=== PATIENT | male | born 2000 | race Caucasian/White ===

== ENCOUNTER 2024-09-27 19:34 | Emergency (ER) | payer BC, SELFPAY ==
[2024-09-27 19:35] VITALS: BP 143/99
[2024-09-27 20:03] LABS: Hematocrit 43.5 % (39.0-52.0); Hemoglobin 15.5 g/dL (13.0-18.0); Mean Corp Hgb Conc. 35.6 g/dL (33.0-37.0); Mean Corpuscular Volume 87.3 fL (80.0-94.0); Nucleated Red Blood Cells % 0 % (-); Platelet Count 339 10^3/uL (130-400); Red Cell Dist. Width 11.7 % (11.5-14.5)
[2024-09-27 20:22] LABS: ALT (SGPT) 24 U/L (0-50); AST (SGOT) 21 U/L (17-59); Albumin 5.6 g/dl (3.5-5.0); Alkaline Phosphatase 92 U/L (38-126); Blood Urea Nitrogen 14 mg/dl (9-20); Calcium 10.2 mg/dl (8.4-10.2); Carbon Dioxide 24 mmol/L (22-30); Chloride 100 mmol/L (98-107); Glucose 100 mg/dl (70-99); Potassium 4.3 mmol/L (3.5-5.1); Sodium 138 mmol/L (135-145); Total Protein 9.1 g/dl (6.3-8.2); eGFR > 60.00
[2024-09-27 23:58] VITALS: BMI 30.3
[2024-09-28 00:02] VITALS: BP 137/98
[2024-09-28 01:00] VITALS: BP 129/93
[2024-09-28] MEDS: NSS 1000 IV (01:50)
[2024-09-28] MEDS: DUONEB 3 ML INH (01:51)
[2024-09-28] MEDS: DECADRON 10 MG PO (01:57)
--- NOTE | 2024-09-28 02:49 | ED.GENMED ---
History of Present Illness
General
Chief Complaint: Breathing Problem
Source: patient
Exam Limitations: none
Time Seen by Provider: 09/28/24 00:18
Nursing documentation reviewed up to this point in time: agreed with
History of Present Illness
History of Present Illness:
Note:
CHIEF COMPLAINT(S)
Shortness of breath and chest tightness.
HISTORY OF PRESENT ILLNESS
The patient is a 24-year-old male presenting with persistent shortness of breath and chest tightness. The symptoms have been ongoing for several months but have significantly worsened over the last two days, to the point that the patient is unable
to engage in daily activities such as walking without becoming short of breath. The patient noted that these symptoms have not improved despite using a prescribed inhaler and a daily steroid for the past two and a half weeks, following a pulmonary
function test that diagnosed him with asthma. This test was conducted by a supervisor facepiece line in [place]. The lack of improvement prompted further evaluation, including the consideration of a CT scan to rule out a pulmonary embolism. The patient denies
any leg pain or recent travel correlating with the symptom onset. Regarding environmental exposure, the patient denies any occupational exposure to chemicals.
SOCIAL HISTORY
The patient resides in [place] but is currently staying with the girlfriends parents. He works in [employer] and mentions consuming alcohol, though the frequency of consumption was not specified.
MEDICATIONS
The patient is currently taking a daily inhaled corticosteroid and albuterol as a rescue inhaler.
REVIEW OF SYSTEMS
- Respiratory: Persistent shortness of breath worsening over the past two days, unrelieved by current inhaler and steroids.
- Cardiovascular: Chest tightness.
PHYSICAL EXAM
General: Alert, no acute distress.
Skin: Warm, dry.
Head: Normocephalic, atraumatic.
Neck: Supple, trachea midline.
Eye Ears, nose, mouth and throat: Oral mucosa moist. Tonsilith on right
Cardiovascular: Normal peripheral perfusion, No edema.
Respiratory: Respirations are non-labored. No wheezes rales or rhonchi present.
Gastrointestinal: Abdomen nondistended.
Back: Normal range of motion, Normal alignment.
Musculoskeletal: Normal ROM, normal strength.
Neurological: Alert and oriented to person, place, time, and situation, No focal neurological deficit observed.
Psychiatric: Cooperative, appropriate mood & affect.
PROBLEM LIST
Acute:
- Worsening shortness of breath
- Chest tightness
PLAN
The plan is to perform a CT scan to evaluate for potential pulmonary embolism. Pending results, additional interventions may include a burst of oral corticosteroids or a different breathing treatment to alleviate symptoms. A referral to follow up
with a local supervisor facepiece line will be provided.
DIFFERENTIAL DIAGNOSIS
The Differential Diagnosis includes, in no particular order and is not limited to:
- Asthma exacerbation
- Pulmonary embolism
- Bronchitis
- Pneumonia
- Chronic obstructive pulmonary disease (COPD) exacerbation
- Heart failure
- Anxiety-related hyperventilation
- Interstitial lung disease
- Pneumothorax
- Gastroesophageal reflux disease (GERD)-related symptoms
Disposition:
SUMMARY OF ENCOUNTER
The patient is a 24-year-old male who presented to the emergency department with persistent shortness of breath that has been ongoing for several months. Recently, the symptoms have worsened, affecting his ability to perform activities such as
running. A CT scan of the chest was conducted to evaluate the possibility of a pulmonary embolism, but it was negative. An electrocardiogram (EKG) was performed, showing a sinus rhythm at a rate of 90 beats per minute with normal intervals and axis.
DISPOSITION
The patient is to be discharged home.
ASSESSMENT
The patients symptoms are likely due to previous asthma exacerbation, requiring follow-up with a local supervisor facepiece line.
PLAN
The patient is advised to follow up with a local supervisor facepiece line for further evaluation and management of his symptoms.
PATIENT EDUCATION AND COUNSELING
Discussed return instructions and emphasized the importance of follow-up with a supervisor facepiece line to manage asthma symptoms effectively. Ensured understanding of when to return if symptoms worsen.
FOLLOW-UP INSTRUCTIONS
Patient advised to follow up with a local supervisor facepiece line.
MEDICATION RECONCILIATION
1. Prescribed and currently using an inhaled corticosteroid (generic not specified) and albuterol as a rescue inhaler.
MEDICAL DECISION MAKING
-Complexity of Data Reviewed: Chronic conditions affecting care include asthma exacerbation. Differential diagnosis considerations included pulmonary embolism, bronchitis, pneumonia, chronic obstructive pulmonary disease (COPD) exacerbation, heart
failure, anxiety-related hyperventilation, interstitial lung disease, pneumothorax, and gastroesophageal reflux disease (GERD)-related symptoms.
-Data:
Category [address] scan was independently reviewed and was negative for pulmonary embolism.
The EKG showed sinus rhythm with a rate of 90, normal intervals, and axis.
-Risk:
Prescription drug management includes inhaled corticosteroids and albuterol.
DIAGNOSIS
Asthma exacerbation - ICD-10: J45.901
Phy Exam
Physical Exam
Physical Exam:
.
General Physical Exam
General Presentation: well appearing and no apparent distress
General Skin: warm and dry
General Habitus: normal
General Mental: alert
General Hydration: appears well hydrated
ENT Exam
ENT Exam: EOMI, pharynx normal, neck supple and normocephalic
Eye Exam
Eye Exam: PERRL, cornea clear and conjunctiva normal
Cardiovascular Exam
Cardiovascular Exam: regular rate/rhythm, no edema, no murmur and normal peripheral pulses
Pulmonary Exam
Pulmonary Exam: lungs clear, no respiratory distress, no rales, no crackles, no rhonchi, no stridor, no wheezing and no cough
Gastrointestinal Exam
Gastrointestinal Exam: normal bowel sounds, non tender, soft, no organomegaly, no pulsatile mass and non distended
Neurological Exam
Neurological Exam: alert, oriented x3, no motor deficits and speech normal
Musculoskeletal Exam
Musculoskeletal Exam: full ROM and no edema
Skin Exam
Skin Exam: normal color, warm/dry, no rash and no petechia
Psychiatric Exam
Psychiatric Exam: normal mood/affect
Course
Orders/Labs/Results
Orders:
Orders
09/27/24 19:38
Electrocardiogram (*1) Urgent
Reason for Study: Shortness of Breath
EKG- Treatment ONCE
09/27/24 19:42
Complete Blood Count/With Diff Urgent
Comprehensive Metabolic Panel Urgent
09/28/24 00:05
CR Chest - 2 Views Urgent
Reason For Exam: sob
09/28/24 00:58
CT Chest PE Study Urgent
Comment:
Reason For Exam: dyspnea, cp
09/28/24 01:42
0.9% Sodium Chloride 1000 ml [Nss] 1,000 ml IV BOLUS
Dexamethasone Pf [Decadron] 10 mg PO NOW STA
Ipratropium/Albuterol Sulfate [Duoneb] 3 ml INH R NOW ONE
Abnormal Lab Results
09/27/24
19:42
MCH 31.1 H pg
(27.0-31.0)
Absolute Neuts (auto) 7.9 H 10^3/uL
(1.4-6.5)
Neutrophils % 78.7 H %
(42.2-75.2)
Lymphocytes % 14.3 L %
(20.5-51.1)
Glucose 100 H mg/dl
(70-99)
Total Protein 9.1 H g/dl
(6.3-8.2)
Albumin 5.6 H g/dl
(3.5-5.0)
09/27/24 19:42
09/27/24 19:42
Vital Signs
Initial and Last Documented VS:
Initial Vital Signs
Pulse Resp BP Pulse Ox
96 16 143/99 98
09/27/24 19:35 09/27/24 19:35 09/27/24 19:35 09/27/24 19:35
Last Documented Vital Signs
Temp Pulse Resp BP Pulse Ox
98.3 F 85 12 129/93 100
09/27/24 19:38 09/28/24 00:30 09/28/24 00:30 09/28/24 01:00 09/28/24 02:49
*Radiology
Radiology exam reviewed: radiology read reviewed
*Pulse Oximetry
SaO2: 100
Oxygen Mode of Delivery: Room air
Patient hypoxic: no
*Critical Care Note
Total Time (30-74mins, 75-104mins- exclusive of procedures): Not Applicable
Update Note
Update Note:
NAME: JADA SORTO
DATE OF EXAM: 09/28/2024
Patient No: [id number]
Physician: [facility]
Date of : 2000
Past Medical History (entered by Technologist):
Reason For Exam (entered by Technologist):
Other Notes (entered by Technologist): cp, sob, per pt was injected for pe study at [facility] on with negative results
Additional Information (per [facility] Radiologist):
CT ANGIOGRAM CHEST WITH CONTRAST
COMPARISON: None
IMPRESSION:
Technically adequate examination for pulmonary embolus. No evidence of pulmonary embolus to the segmental level.
Heart size is normal. Thoracic aorta is normal in caliber.
Lungs are clear without consolidation or groundglass opacity.
Visualized upper abdomen is unremarkable.
No concerning bone finding.
Case results were faxed/electronically transmitted at 6802 EST. If there are any questions please feel free to contact me directly at [phone], ext [phone]. If you cannot reach me at this number, do not leave a voicemail. Please call [phone]
ext [phone] and ask for the next available radiologist.
Chandana Gilbert M.D.
This report has been electronically signed and verified by the Radiologist whose name is printed above.
ED Attending Note
-
Portions of this chart may have been created with voice recognition software.� Occasional wrong word or��sound alike� substitutions may have occurred due to the inherent limitations of voice recognition software.
Discharge Plan
Departure
Patient Disposition: Home (Routine Discharge)
Date of Disposition: 09/28/24
Time of Disposition: 03:29
Patient with high blood pressure during this ER visit?: Yes
Discharge Problem:
Acute dyspnea
Instructions: Shortness of Breath (Dyspnea) (DC), BLOOD PRESSURE
Referrals:
Angelica Dyer MD [Active, Pulmonary Medicine] - Next open appointment
Miriam Coleman PA-C [Family Provider]
Activity Restrictions/Additional Instructions:
Please continue to take your home meds as previously prescribed. Remain hydrated as discussed.
Thank You for choosing [facility].
It was a pleasure meeting you and taking part in your care. We hope for your continued healing and wellness.
Please read discharge instructions in their entirety. However, they are for general education and may not describe your exact diagnosis at discharge. Information on your ER visit and medical conditions were discussed with you along with appropriate
follow up information...
If indicated, please take your medications as instructed and indicated on discharge paperwork.
Please schedule a follow up appointment as directed. Call to schedule an appointment
Please return to the emergency department with ANY change in, persisting, or worsening of symptoms. If any of your symptoms do not improve, or persist, or become more severe within 6-12 hours, please return to the emergency department for further
care.
Please return to the emergency department if you develop a headache, neck pain/stiffness, fever greater than 100.4F, chest pain, shortness of breath, persistent nausea, vomiting, slurred speech, difficulty walking, numbness/tingling, weakness, signs
of infection or any other symptoms that are worrisome to you.
If you have any questions or concerns please do not hesitate to call the Hospital at or E-mail me directly at [email or web address]
Interventions
Interventions:
*Risk Screen - Suicide Last Done: 09/27/24 19:35
*General Assessment Last Done: 09/27/24 19:35
*Neglect/Abuse Screening Last Done: 09/27/24 23:58
*ED- Fall Risk Assessment Last Done: 09/27/24 19:35
*ED COVID-19 Vaccine History Last Done: 09/27/24 19:35
ED- Cardiac Assessment Last Done: 09/27/24 23:58
ED- Pulmonary Assessment Last Done: 09/27/24 23:58
Discharge Date and Time
Print Language: LATVIAN
[2024-09-28 03:47] VITALS: BP 148/89
== END 2024-09-28 03:49 | disposition home or self-care (01) ==
LOC: EMR 19:34
PROVIDERS: Emergency Medicine; EMERGENCY PHYSICIAN Student in an Organized Health Care Education/Training Program; FAMILY PHYSICIAN Physician Assistant
DX: R06.00 Dyspnea, unspecified (principal); J45.909 Unspecified asthma, uncomplicated; R03.0 Elevated blood-pressure reading, without diagnosis of hypertension
CPT/HCPCS: 99284; 96360; 94640; 71046; 71275; 80053; 85025; 93005; Q9967